=== PATIENT | female | born 1950 | race Caucasian/White ===

== ENCOUNTER 2016-04-11 10:49 | Emergency (ER) | payer OTHER, MEDICARE ==
[~2016-04-11] VITALS: Ht 162.6 cm; Wt 70.0 kg
[~2016-04-11 10:49] MED LIST: ALBU1AER INH; COZA50TA PO; IMIT100T PO; PROP20TA24 PO; ROXI5TAB4 PO; THEO200T27 PO; XANA1TAB6 PO
[2016-04-11 10:55] VITALS: BP 168/86; PULSE 61; RESP 18; TEMP 99.2; O2SAT 96
[2016-04-11] MEDS ORDERED: OXYC30TA PO (11:16)
[2016-04-11] MEDS ORDERED: FIORINAL2 PO (11:16)
[2016-04-11] MEDS ORDERED: ADDE20 PO (11:16)
[2016-04-11] MEDS ORDERED: XANA1TAB2 PO (11:16)
[2016-04-11] MEDS ORDERED: SUMA100T2 PO (11:16)
[2016-04-11] MEDS ORDERED: FLUT1INH INH (11:16)
[2016-04-11] MEDS ORDERED: OMEP20TA PO (11:16)
[2016-04-11] MEDS ORDERED: HYDROmorphone HCL PF 1 MG/ML VIAL IM ONE (11:30)
[2016-04-11] MEDS ORDERED: ONDANSETRON HCL 4 MG/2 ML VIAL IM ONE (11:30)
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
[2016-04-11] MEDS ORDERED: ROBA750T PO (12:51)
[2016-04-11] MEDS ORDERED: DICL75TA PO (12:51)
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
[2016-05-02] MEDS ORDERED: IPRASOL INH (11:58)
[2016-05-02] MEDS ORDERED: LOSA50TA PO (11:58)
[2016-05-02] MEDS ORDERED: VENTAER INH (12:03)
[2016-05-02] MEDS ORDERED: THEO200T4 PO (12:03)
[2016-05-02] MEDS ORDERED: AMLO10TA2 PO (12:13)
== END 2016-04-11 13:12 | disposition home or self-care (01) ==
LOC: PHEFT 10:49
DX: S20.219A Contusion of unspecified front wall of thorax, initial encounter (principal); S13.4XXA Sprain of ligaments of cervical spine, initial encounter; M54.9 Dorsalgia, unspecified; M25.552 Pain in left hip; R07.81 Pleurodynia; M79.641 Pain in right hand; M25.531 Pain in right wrist; R07.9 Chest pain, unspecified; R51 Headache; J44.9 Chronic obstructive pulmonary disease, unspecified; I10 Essential (primary) hypertension; V43.52XA Car driver injured in collision with other type car in traffic accident, initial encounter; Y93.89 Activity, other specified; Y92.410 Unspecified street and highway as the place of occurrence of the external cause; M48.54XA Collapsed vertebra, not elsewhere classified, thoracic region, initial encounter for fracture
CPT/HCPCS: 70450; 71111; 71120; 72125; 72131; 73110; 73130; 73502; 96372; 99284; J1170; J2405

== ENCOUNTER → 2016-08-27 | Outpatient (CLI) | payer MEDICARE, OTHER ==
[~2016-08-27] MED LIST changes: +ADDE20 PO; -ALBU1AER INH; +AMLO10TA2 PO; -COZA50TA PO; +DICL75TA PO; +FIORINAL2 PO; +FLUT1INH INH; -IMIT100T PO; +IPRASOL INH; +LOSA50TA PO; +OMEP20TA PO; +OXYC30TA PO; -PROP20TA24 PO; +ROBA750T PO; -ROXI5TAB4 PO; +SUMA100T2 PO; -THEO200T27 PO; +THEO200T4 PO; +VENTAER INH; +XANA1TAB2 PO; -XANA1TAB6 PO
[2016-08-27 13:43] LABS: BICARBONATE 28.4 MEQ/L (21.0-32.0); POTASSIUM 3.5 MEQ/L (3.5-5.1); TOTAL PROTEIN SPE 7.6 GM/DL (6.0-7.6)
[2016-08-27 17:26] LABS: BLOOD, URINE NEG (NEG); GLUCOSE,URINE NEG (NEG); KETONE, URINE NEG (NEG); NITRITE,URINE NEG (NEG); SQUAMOUS EPITHELIAL CELL URINE <1 /hpf (0-5); URINE COLOR YELLOW (YELLW/STRAW)
[2016-08-27 17:27] LABS: URINE TOTAL PROTEIN TIMED 13.5 MG/DL
[2016-08-27 22:33] LABS: ALBUMIN SPE 4.32 GM/DL (3.50-5.00); ALPHA 1 GLOBULIN 0.3 GM/DL (0.11-0.29)
[2016-08-27 22:34] LABS: BETA GLOBULINS (SPE) 0.78 GM/DL (0.53-1.03)
[2016-08-29 03:51] LABS: KAPPA/LAMBDA FREE 1.25 (0.26-1.65)
[2016-08-30 03:52] LABS: MYELOPEROXIDASE LESS THAN 1.0 AI (<1.0); PROTEINASE-3 LESS THAN 1.0 AI (<1.0)
== END ==
LOC: PLAB 11:21
PROVIDERS: ATTEND Internal Medicine Nephrology
DX: E55.9 Vitamin D deficiency, unspecified (principal); N18.3 Chronic kidney disease, stage 3 (moderate)
CPT/HCPCS: 36415; 80069; 81001; 82306; 82570; 83883; 83970; 84156; 84165; 86021; 86160; 86162; 86335; 86803

== ENCOUNTER 2016-10-29 22:22 | Emergency (ER) | payer MEDICARE, OTHER ==
[~2016-10-29] VITALS: Ht 162.6 cm; Wt 69.5 kg
[2016-10-29 22:33] VITALS: BP 133/73; PULSE 62; RESP 16; TEMP 98.3; O2SAT 98
== END 2016-10-30 00:26 | disposition left against medical advice (07) ==
LOC: PHED 22:22
DX: S99.921A Unspecified injury of right foot, initial encounter (principal); W19.XXXA Unspecified fall, initial encounter
CPT/HCPCS: 99281

== ENCOUNTER → 2017-01-29 | Outpatient (CLI) | payer MEDICARE, OTHER ==
[~2017-01-29] MED LIST changes: +CENTCHW4 CHEW; +E 101000 PO; +FENT75DI TD; +HYDR-3535 PO; -OMEP20TA PO; +OMEP20TA93 PO; +SOMA350T PO; +VITA1000 PO
[2017-01-29 11:11] LABS: AUTOMATED NEUTROPHIL # 5.3 TH/MM3 (1.8-7.7); BASOPHIL % 0.4 % (0.0-2.0); EOSINOPHIL # 0.1 TH/MM3 (0-0.4); EOSINOPHIL % 1.5 % (0.0-4.0); HEMATOCRIT 39.1 % (35.0-46.0); HEMOGLOBIN 13.2 GM/DL (11.6-15.3); LYMPH % 24.9 % (9.0-44.0); MEAN CELL VOLUME 90.8 FL (80.0-100.0); MEAN CORPUSCULAR HEMOGLOBIN 30.6 PG (27.0-34.0); MEAN CORPUSCULAR HGB CONC 33.7 % (32.0-36.0); MEAN PLATELET VOLUME 9.6 FL (7.0-11.0); MONO % 7.4 % (0.0-8.0); MONOCYTE # 0.6 TH/MM3 (0-0.9); NEUT % 65.8 % (16.0-70.0); PLATELET COUNT 201 TH/MM3 (150-450); RED BLOOD COUNT 4.31 MIL/MM3 (4.00-5.30); RED CELL DISTRIBUTION WIDTH 13.5 % (11.6-17.2); WHITE BLOOD COUNT 8.1 TH/MM3 (4.0-11.0)
[2017-01-29 11:18] LABS: BILIRUBIN, URINE NEG (NEG); BLOOD, URINE NEG (NEG); GLUCOSE,URINE NEG (NEG); KETONE, URINE NEG (NEG); NITRITE,URINE NEG (NEG); PH, URINE 6.5 (5.0-8.5); SQUAMOUS EPITHELIAL CELL URINE <1 /hpf (0-5); TRANSITIONAL EPI CELLS, URINE <1 /hpf; URINE COLOR YELLOW (YELLW/STRAW); URINE LEUKOCYTE ESTERASE SMALL (NEG)
[2017-01-29 11:27] LABS: PROTHROMBIN TIME - PATIENT 11.1 SEC (9.8-11.6)
[2017-01-29 11:40] LABS: ALBUMIN 3.8 GM/DL (3.4-5.0); AST (GOT) 46 U/L (15-37); BICARBONATE 30.3 MEQ/L (21.0-32.0); BLOOD UREA NITROGEN 8 MG/DL (7-18); CALCIUM 9.6 MG/DL (8.5-10.1); CHLORIDE 104 MEQ/L (98-107); GLOMERULAR FILTRATION RATE 56 ML/MIN (>89); GLUCOSE,FASTING 104 MG/DL (74-99); SODIUM (NA) 138 MEQ/L (136-145)
[2017-01-29 11:50] LABS: ALKALINE PHOSPHATASE 104 U/L (45-117); ALT (GPT) 65 U/L (10-53); TOTAL BILIRUBIN ADULT 0.5 MG/DL (0.2-1.0); TOTAL PROTEIN 7.9 GM/DL (6.4-8.2)
--- NOTE | 2017-01-29 22:16 | EKG ---
Date Performed: 01/29/2017 Time Performed: 10:39:59 PTAGE: 66 years EKG: Sinus rhythm NORMAL ECG PREVIOUS TRACING : 07/11/2014 16.45 Compared to the previous tracing rate slower DOCTOR: Aleyda Alexander Interpretating Date/Time 01/29/2017 22:14:13
== END ==
LOC: CPRE 10:04
PROVIDERS: ATTEND Neurological Surgery
DX: Z01.810 Encounter for preprocedural cardiovascular examination (principal); Z01.812 Encounter for preprocedural laboratory examination; Z01.811 Encounter for preprocedural respiratory examination; Z01.818 Encounter for other preprocedural examination; M50.20 Other cervical disc displacement, unspecified cervical region; M51.26 Other intervertebral disc displacement, lumbar region
CPT/HCPCS: 36415; 80053; 81001; 85025; 85610; 85730; 93005

== ENCOUNTER 2017-02-06 06:35 | Observation (INO) | payer MEDICARE, OTHER ==
[~2017-02-06] VITALS: Ht 162.6 cm; Wt 71.2 kg
[~2017-02-06 06:35] MED LIST changes: -DICL75TA PO; -HYDR-3535 PO; -SOMA350T PO; -THEO200T4 PO
[2017-02-06] MEDS ORDERED: VANCOMYCIN HCL 1000 MG ON-CALL/NS 250 ML IV SCH ×2 (07:00)
[2017-02-06] MEDS ORDERED: SODIUM CHLOR 0.9% 1000 ML INJ 1,000 ML IV SCH ×2 (07:00→14:00)
[2017-02-06] MEDS ORDERED: SODIUM CHLORID 0.9% 500 ML IV PRN (07:00)
[2017-02-06] MEDS ORDERED: POVIDONE IODINE 5% (ANTISEPSIS KIT) 4 APPLICATIONS EACH NARE PRN (07:00)
[2017-02-06] MEDS ORDERED: INSULIN HUMAN REGULAR 1,000 UNITS/10 ML VIAL SQ PRN (07:00)
[2017-02-06] MEDS ORDERED: METOPROLOL TARTRATE 25 MG TAB PO PRN (07:00)
[2017-02-06] MEDS ORDERED: CHLORHEXIDINE GLUCONATE 2 % 1 PACK (2 CLOTHS) TOPICAL PRN (07:00)
[2017-02-06] MEDS ORDERED: LACTATED RINGER'S 1000 ML IV PRN (07:00)
[2017-02-06] MEDS ORDERED: MICROFIBRILLAR COLLAGEN HEMOSTAT 70 X 35 MM BANDAGE ONE (07:31)
[2017-02-06] MEDS ORDERED: THROMBIN (TOPICAL) 5,000 UNIT VIAL ONE (07:31)
[2017-02-06] MEDS ORDERED: GELFOAM SIZE 100 ONE (07:32)
[2017-02-06] MEDS ORDERED: GENTAMICIN SULFATE 80 MG/2 ML VIAL ONE (07:32)
[2017-02-06] MEDS ORDERED: ceFAZolin 2 GM PREMIX 50 ML ONE (07:32)
[2017-02-06] MEDS ORDERED: SOMA350T PO (07:49)
[2017-02-06] MEDS ORDERED: ACETAMINOPHEN 1000 MG/100 ML 0 ML IV ONE (07:52)
[2017-02-06] MEDS ORDERED: PROPOFOL 500 MG/50 ML INJ 100 ML ONE (07:52)
[2017-02-06] MEDS ORDERED: ARTIFICIAL TEARS OPTH OINT 3.5 APPLIC/3.5 GM TUBO ONE (07:52)
[2017-02-06] MEDS ORDERED: DEXTROSE 50% IN WATER 50 ML VIAL(D50) IV PUSH PRN (12:00)
[2017-02-06] MEDS ORDERED: PHENYLEPH/NS 1000 MCG/10 ML SYR IV ONE (12:00)
[2017-02-06] MEDS ORDERED: LACTATED RINGER'S 1000 ML INJ 1,000 ML IV ONE (12:00)
[2017-02-06] MEDS ORDERED: GLUCAGON 1 MG/ML VIAL OTHER PRN (12:00)
[2017-02-06] MEDS ORDERED: BISACODYL 10 MG SUPP RECTAL PRN (12:00)
[2017-02-06] MEDS ORDERED: ONDANSETRON HCL 4 MG/2 ML VIAL IV PUSH ONE (12:00)
[2017-02-06] MEDS ORDERED: MIDAZOLAM HCL 2 MG/2 ML VIAL IV ONE (12:00)
[2017-02-06] MEDS ORDERED: SODIUM CHLORIDE 0.9% FLUSH 5 ML FLUSH IVF PRN (12:00)
[2017-02-06] MEDS ORDERED: ePHEDrine/NS 25 MG/5 ML SYR IV ONE (12:00)
[2017-02-06] MEDS ORDERED: PROPOFOL 200 MG/20 ML AMP IV ONE (12:00)
[2017-02-06] MEDS ORDERED: cloNIDine HCL 0.1 MG TAB PO/NG PRN (12:00)
[2017-02-06] MEDS: INSULIN ASPART SUPPLEMENTAL SCALE SQ SCH ×3 (12:00→20:53)
[2017-02-06] MEDS ORDERED: ACETAMINOPHEN 325 MG TAB PO PRN (12:00)
[2017-02-06] MEDS ORDERED: MENTHOL LOZENGE BUCCAL PRN (12:00)
[2017-02-06] MEDS ORDERED: DEXAMETHASONE SOD PHOS 4 MG/ML VIAL IV ONE (12:00)
[2017-02-06] MEDS ORDERED: LIDOCAINE HCL 1% PF 5 ML AMPULE OTHER ONE (12:00)
[2017-02-06] MEDS ORDERED: PANTOPRAZOLE SODIUM 40 MG VIAL IVP SCH (12:00)
[2017-02-06] MEDS ORDERED: MAGNESIUM HYDROXIDE SUSP 30 ML CUP PO PRN (12:00)
[2017-02-06] MEDS ORDERED: RESP: ALBUTEROL 2.5 MG/3 ML NEB (PRN) INH (12:00)
[2017-02-06] MEDS ORDERED: MORPHINE SULFATE 4 MG/ML INJ IV PUSH PRN (12:00)
[2017-02-06] MEDS ORDERED: ONDANSETRON HCL 4 MG/2 ML VIAL IV PUSH PRN (12:00)
[2017-02-06] MEDS ORDERED: ACETAMINOPHEN/HYDROcodone 325 MG/10 MG TAB PO PRN ×2 (12:00)
[2017-02-06] MEDS ORDERED: VANCOMYCIN INJ 1,000 MG in SODIUM CHLOR 0.9% 250 ML INJ 250 ML IV SCH (12:00)
[2017-02-06] MEDS ORDERED: CYCLOBENZAPRINE HCL 10 MG TAB PO PRN (12:00)
[2017-02-06] MEDS ORDERED: ALPRAZolam 1 MG TAB PO PRN (12:15)
[2017-02-06] MEDS ORDERED: DO NOT ADM ANY ANTICOAGULANT DRUGS PRN (12:19)
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
[2017-02-06] MEDS: CARISOPRODOL 350 MG TAB PO SCH ×2 (13:00→18:39)
[2017-02-06] MEDS ORDERED: *MEPERIDINE 25 MG INJ VIAL PERIprocedural Use ONLY ONE (13:31)
--- NOTE | 2017-02-06 13:32 | PD.OP ---
Operative Report Date of Surgery: Feb 06, 2017 Preoperative Diagnosis: Cervical spinal stenosis Postoperative Diagnosis: Cervical spinal stenosis Procedure: C5-6, C6-7 anterior cervical discectomy, interbody arthodhesis using PEEK cage filled with autologous bone graft, Simplicity plate and screws. Anesthesia: general Surgeon: Jhony Cifuentes Electron Gun Inspector(s): Nichelle Knox Operation and Findings: INDICATIONS FOR THE PROCEDURE Ms Farah is a 66 year-old female who presented with intractable neck pain and clinical evidence of C6 and C7 upper extremity radiculopathy. She was found to have significant spondylosis with stenosis. She failed maximum nonsurgical management including multiple modalities of conservative treatment as well as pain management interventions by an interventional pain specialist. A surgical decompression and arthrodhesis were indicated. The [id number] details of the procedure, indications, alternatives, risks and potential complications were fully discussed with the patient. The patient fully understood. All The questions were answered. No guarantees were given. The patient voiced requesting the procedure and provided informed consents. The patient was offered the alternative of delaying the procedure and continuing with nonsurgical management. DETAILS OF THE SURGICAL PROCEDURE After the induction of general anesthesia, endotracheal intubation was performed. A Velasquez catheter, bilateral ARTEMIO hose, and sequential compression devices were placed and kept throughout the procedure. Placement of electrodes for neurophysiological monitoring of the somato sensorial evoked potentials. motor evoked potentials, and EMG as well as laryngeal nerve monitoring was achieved. The patient was positioned supine on a Syed table with the head over a gel doughnut. All pressure points were carefully padded with eggcrate mattress. The eyes were tapped shut after ointment was applied by the anesthesiologist to prevent corneal abrasion. A Russ hugger was placed over the exposed lower body to maintain control of the core body temperature. The electrophysiological team placed the needles and electrodes in their proper location and baseline SSEP's and motor evoked potentials were registered prior and after positioning and endotracheal intubation. The anterior cervical region was prepped and draped in the usual sterile fashion. A localizing x-ray was performed with a C-arm. The surgical procedure was performed in several steps as follow: SURGICAL APPROACH A skin incision was made along the inferior cervical crease with a #10 blade. The dissection was carried out through the platysma exposing the sternocleidomastoid muscle. The cervical spine was approached following the fascial layers of the neck just medial to the anterior border of the sternocleidomastoid and carotid sheath by a combination of sharp and dull dissection. The omohyoid muscle was identified and carefully dissected laterally and the deep cervical fascia was carefully opened. The longus colli muscles were retracted to each side of the midline. A marker was placed at the disc space C5-6 and a cross-table lateral x-ray performed with a C-arm. SURGICAL DECOMPRESSION In order to decompress the anterior surface of the spinal cord it was necessary to preform a microsurgical resection of the disk at C5-6 and C6-7. At this point in the procedure the operating microscope was draped in the usual sterile fashion and brought to the field. The rest of the surgical procedure was performed using microdissection technique with the exception of the closure. Under the operative microscopic, a self-retaining retractor was placed underneath the longus colli muscle. Anterior osteophite spurs werte carefully removed with the Leksell. The annulus at C5-6 and C6-7 were incised with a #15 blade and microdiscectomy was then carefully carried out using angled curets and pituitary forceps. There were osteophitic/disk complexes mass effect and compression of the dural sac and nerve roots. The posterior longitudinal ligament was then elevated with an angled curet and incised with a 15 bladed knife. A careful resection of the posterior longitudinal ligament was carried out using a thin footplate 2 mm Kerrison. A nerve hook was used to assess the epidural space behind the vertebral bodies C5, C6, and C7 in search for residual disk fragments. The margins of the posterior endplates at C5-6 and C6- 7 were carefully drilled and undercut with a TPS drill under high magnification. The decompression was then carried out laterally, and a bilateral foraminotomy was performed with a 2mm thin foot Kerrison. Then the vertebral bodies above and below the disk space were undercut using a 2 mm thin foot Kerrison. The epidural space was the systematically assessed with a nerve hook in search for disk fragments. An excellent decompression was achieved in both, the dural sac and bilateral exiting nerve roots. The incision was then irrigated with a large amount of antibiotic solution INTERBODY ARTHRODHESIS In order to avoid collapse of the disk space which would result in bilateral foraminal stenosis, and to increase the chances of a successful fusion, it was necessary to place an interbody cage filled with autologous bone. At this point of the procedure, the superior and inferior endplates were then evenly decorticated with a TPS drill. The use of a drill in combination with a curette allowed me to systematically remove the cartilaginous endplates, exposing healthy bone for the interbody arthrodesis. Fourteen millimeters distraction pins were then placed at the vertebral bodies adjacent to the disk space, and gentle distraction was applied. The size of the interbody cage was then assessed using different size spacers, and a rasp was used to ensure no residual cartilage. A PEEK cage of the appropriate size was selected, and the interbody arthrodesis was then preformed by carefully impacting a PEEK cage filled with autologous bone graft to the disc spaces C5-6 and C6-7. An excellent position of the cage was achieved. This was was confirmed anatomically by feeling the space posterior to the implant and distance to the anterior surface of the dural sac. Radiological confirmation of the position was performed with a cross lateral xray performed with the C-arm. INTERNAL INSTRUMENTAL FIXATION Once that the interbody device was in an appropriate position, it was necessary to stabilize the spine with anterior instrumentation. Anterior instrumentation has demonstrated to increase the rate of fusion, accelerate the patient's recovery, and decrease the rate of failed interbody grafts. At this point of the procedure, the distance between the vertebral bodies was carefully measures, and a Simplicity plate was brought to the field and presented in front of the vertebral bodies C5, C6, and C7. Sand Mill Operator Core Sand holes were then drilled using the TPS drill, and the plate was then secured to the spine using self-drilling, self-tapping screws. Initially, the inferior right screw was inserted, followed by placement of the contralateral upper screw. The remanding screws were sequentially placed in a contra-lateral fashion. A proper purchase was achieved with all screws and the position of the cage, plate and screws, and alignment of the spine was assessed anatomically by direct visualization, and radiologically by performing a cross lateral xray of the cervical spine with the C-arm. CLOSURE The incision was irrigated with several liters of antibiotic solution. Hemostasis was achieved with a bipolar. The screws were locked to prevent backing out. A 7 mm Syed-Keenan drain was left in the prevertebral space and externalized through a separate stab incision. The incision was then closed in layers. 3-0 Vicryl with interrupted sutures was used to close the platysma and subcutaneous tissue. The skin was closed with 4-0 running subcuticular Vicryl and glue was applied to the skin. The drain was secured with a 3-0 nylon. At the end of the procedure the sponge, needle and instrument counts were all correct. The estimated blood loss was less than 70-80 cc. No blood transfusion was given. No intraoperative complications occurred. The patient received prophylactic antibiotics. The patient was then extubated and transferred to the recovery room in stable condition. Jhony Cifuentes MD Feb 06, 2017 13:32
[2017-02-06] MEDS ORDERED: *morphine SULFATE 8 MG/ML PERIprocedure ONLY ONE (13:42)
[2017-02-06] MEDS ORDERED: *HYDROmorphone PF 1 MG VIAL PERIprocedural Use ONLY ONE (13:52)
[2017-02-06] MEDS: SODIUM CHLORIDE 0.9% FLUSH 5 ML FLUSH IVF SCH ×2 (14:00→20:53)
[2017-02-06] MEDS: DEXAMETHASONE SOD PHOS 4 MG/ML VIAL IV PUSH SCH ×3 (14:00→18:38)
[2017-02-06] MEDS ORDERED: METHOCARBAMOL 500 MG TAB PO PRN (15:00)
[2017-02-06] MEDS: MORPHINE SULFATE 4 MG/ML INJ IV PUSH PRN (15:59)
[2017-02-06] MEDS ORDERED: RESP: ALBUTEROL 2.5 MG/IPRATROPIUM 0.5 MG NEB (SCH) INH (16:00)
[2017-02-06] MEDS: DOCUSATE SODIUM 100 MG CAP PO SCH ×2 (16:01→20:53)
[2017-02-06] MEDS: PANTOPRAZOLE SOD 40 MG DELAYED RELEASE TAB PO SCH (16:06)
[2017-02-06] MEDS: ceFAZolin 2 GM PREMIX 50 ML IV SCH (16:07)
[2017-02-06 16:24] VITALS: BP 160/87; PULSE 90; RESP 18; TEMP 98.8; O2SAT 99
[2017-02-06 20:00] VITALS: BP 150/78; PULSE 88; RESP 16; TEMP 97.5; O2SAT 98
[2017-02-06] MEDS ORDERED: CHLORHEXIDINE GLUCONATE 4% SOLN 120 ML BTL TOP SCH (21:00)
[2017-02-07] VITALS: BP 146/87; PULSE 92; RESP 16; TEMP 97.5; O2SAT 95
[2017-02-07] MEDS: ceFAZolin 2 GM PREMIX 50 ML IV SCH ×2 (00:38→08:32)
[2017-02-07] MEDS: DEXAMETHASONE SOD PHOS 4 MG/ML VIAL IV PUSH SCH ×2 (00:38→05:54)
[2017-02-07] MEDS: MORPHINE SULFATE 4 MG/ML INJ IV PUSH PRN ×2 (00:38→06:00)
[2017-02-07 04:00] VITALS: BP 112/69; PULSE 85; RESP 17; TEMP 95.7; O2SAT 96
[2017-02-07 08:00] VITALS: BP 144/83; PULSE 92; RESP 18; TEMP 98.3; O2SAT 96
[2017-02-07] MEDS: INSULIN ASPART SUPPLEMENTAL SCALE SQ SCH (08:00)
[2017-02-07] MEDS: DOCUSATE SODIUM 100 MG CAP PO SCH (08:30)
[2017-02-07] MEDS: CARISOPRODOL 350 MG TAB PO SCH (08:30)
[2017-02-07] MEDS: PANTOPRAZOLE SOD 40 MG DELAYED RELEASE TAB PO SCH (08:31)
[2017-02-07] MEDS: SODIUM CHLORIDE 0.9% FLUSH 5 ML FLUSH IVF SCH (08:32)
[2017-02-07] MEDS ORDERED: DEXTROAMPHETAMINE/AMPHETAMINE 20 MG TAB PO SCH (09:00)
[2017-02-07] MEDS ORDERED: MULTIVITAMINS/MINERALS THERAPEUTIC TAB PO SCH (09:00)
[2017-02-07] MEDS ORDERED: FLUTICASONE 100 MCG/VILANTEROL 25 MCG INHALER INH SCH (09:00)
[2017-02-07] MEDS ORDERED: LOSARTAN 50 MG TAB PO SCH (09:00)
[2017-02-07] MEDS ORDERED: CHOLECALCIFEROL (VIT D3) 1000 UNIT TAB PO SCH (09:00)
[2017-02-07] MEDS ORDERED: HYDR-3535 PO (09:36)
--- NOTE | 2017-02-07 10:36 | HHI.DCPOC ---
Discharge Care Plan Diagnosis: (1) Status post cervical arthrodesis Goals to Promote Your Health * To prevent worsening of your condition and complications * To maintain your health at the optimal level Directions to Meet Your Goals Take your medications as prescribed Follow your dietary instruction Follow activity as directed Keep your appointments as scheduled Take your immunizations and boosters as scheduled If your symptoms worsen call your PCP, if no PCP go to Urgent Care Center or Emergency Room Smoking is Dangerous to Your Health. Avoid second hand smoke Call the 24-hour hour crisis hotline for domestic abuse at Destiny Brown Feb 07, 2017 10:36
--- NOTE | 2017-02-07 10:36 | HHI.DS ---
Discharge Summary Admission Date Feb 06, 2017 at 12:00 Discharge Date: Feb 07, 2017 Admitting Diagnosis s/p ACDF (1) Status post cervical arthrodesis ICD Code: Z98.1 - Arthrodesis status Brief History Ms. Farah is a 66 year-old female who presented with intractable neck pain and clinical evidence of C6 and C7 upper extremity radiculopathy. She was found to have significant spondylosis with stenosis. She failed maximum nonsurgical management including multiple modalities of conservative treatment as well as pain management interventions by an interventional pain specialist. A surgical decompression and arthrodesis were indicated. Significant Findings Laboratory Tests Test 02/06/17 18:30 Hospital Course Ms. Farah underwent a C5-6, C6-7 anterior cervical discectomy, interbody arthrodesis using PEEK cage filled with autologous bone graft, Simplicity plate and screws on Feb 06, 2017 for Cervical spinal stenosis. Her surgery went well without complications. She was discharged home with home health care in stable conditions. Wound care and activity restrictions were discussed. Pt Condition on Discharge: Stable Discharge Disposition: Discharge Home Discharge Instructions DIET: Follow Instructions for: Heart Healthy Diet ADDITIONAL Diet Instructions: soft diet and advance as tolerated ACTIVITIES You can perform: Weight Bearing As [place] ADDITIONAL Activity Instructio: Avoid strenuous activities, heavy lifting over 5 lbs, overhead activities, repetitive bending, twisting, pushing, pulling or any activities which might result in stress over the spine. Avoid situation that will put at risk for falls. Use assistive device as needed for walking. Wear cervical collar at all times, may remove only with meals. Follow up Referrals: Neurosurgery - 1 Week @ [facility] with Jhony Cifuentes MD New Medications: Hydrocodone-Acetaminophen (Lortab) 10-325 Mg Tab 1 TAB PO Q8HR PRN for PAIN, #62 TAB 0 Refills Continued Medications: Albuterol 18 GM Inh (Ventolin Hfa 18 GM Inh) 90 Mcg/Act Aer 1-2 PUFF INH Q4-6H PRN for SHORTNESS OF BREATH, #1 INHALER 0 Refills Alprazolam (Xanax) 1 Mg Tab 1 MG PO Q8H PRN for ANXIETY, TAB 0 Refills Amlodipine (Amlodipine) 10 Mg Tab 10 MG PO DAILY for Blood Pressure Management, #30 TAB 0 Refills Amphetamine-Dextroamphetamine (Adderall) 20 Mg Tab 20 MG PO DAILY for Hyperactivity Control, #60 TAB 0 Refills Avoid late evening doses. Space doses at least 4 to 6 hours if more than once/day dosing. Ygcfqfqpxs-Wnljlkc-Ywrvtoxp (Fiorinal) 50-325-40 Mg Cap 1 CAP PO Q4H PRN for HEADACHE, CAP 0 Refills Do not exceed 6 capsules/day. Carisoprodol (Soma) 350 Mg Tab 350 MG PO TID, TAB 0 Refills Cholecalciferol (Vitamin D-1000) 1,000 Unit Tab 2000 UNITS PO DAILY for Nutritional Supplement, #1 BOTTLE 0 Refills Fentanyl Patch 72 HR (Fentanyl Patch 72 HR) 75 Mcg/Hr Patch 75 MCG TD Q3D Fluticasone-Vilanterol Inh (Breo Ellipta Inh) 100-25 Mcg/Act Inh 1 PUFF INH DAILY, #1 INHALER 0 Refills Use daily at the same time. Ipratropium-Albuterol Neb (Duoneb) 0.5-2.5 Mg/3 Ml Neb 1 NEBULE INH Q6HR NEB for Breathing Treatment, #120 NEBULE 0 Refills Losartan (Losartan) 50 Mg Tab 50 MG PO DAILY for Blood Pressure Management, #30 TAB 0 Refills Methocarbamol (Robaxin) 750 Mg Tab 750 MG PO QID PRN for PAIN SCALE 1 TO 10, #20 TAB Multiple Vitamins W/ Minerals (Centrum) 1 Chew 1 TAB CHEW DAILY for Nutritional Supplement, TAB 0 Refills Omeprazole (Omeprazole) 20 Mg Tab 20 MG PO DAILY, #30 TAB 0 Refills Oxycodone (Oxycodone) 30 Mg Tab 30 MG PO Q6HR PRN for PAIN SCALE 1 TO 10, TAB 0 Refills Sumatriptan (Sumatriptan) 100 Mg Tab 100 MG PO ONCE PRN for MIGRAINE HEADACHE, TAB 0 Refills If a satisfactory response has not been obtained at 2 hours, a second dose may be administered Vitamin E (E 1000) 1,000 Unit Cap 2000 UNIT PO DAILY Destiny Brown Feb 07, 2017 10:36
--- NOTE | 2017-02-07 11:26 | HHI.FF ---
Face to Face Verification Diagnosis: (1) Status post cervical arthrodesis Home Health Nursing Order: Medical education Medication education-adverse effect Wound care and dressing changes (do not remove Optifoam dressing, pt will return in office in 1 week. Please see wound care in discharge orders.) Nursing assessment with vital signs Instructions: Patient has [facility] I have seen patient Kae Farah on 02/07/17. My clinical findings support the need for the requested home health care services because: Ltd mobility - disease progression (s/p cervical fusion) I certify that my clinical findings support that this patient is homebound because: Post-op weakness Destiny Brown Feb 07, 2017 11:26
== END 2017-02-07 11:57 | disposition home or self-care (01) ==
LOC: HSDC 06:35 → HSDI 12:00 → N06B 14:19
PROVIDERS: ADMIT Neurological Surgery; ATTEND Neurological Surgery
DX: M48.02 Spinal stenosis, cervical region (principal); M50.123 Cervical disc disorder at C6-C7 level with radiculopathy; I10 Essential (primary) hypertension; E11.9 Type 2 diabetes mellitus without complications
CPT/HCPCS: 00600; 20936; 22551; 22552; 22845; 22853; 72020; 76000; 82948; 87641; 96365; 96375; 96376; 97162; C1713; G0378; G8987; G8988; J0690; J1100; J1170; J1580; J1815; J2175; J2250; J2270; J2370; J2405; J3010; J7120; L0150; L0172; J0131

== ENCOUNTER → 2017-05-16 | Outpatient (CLI) | payer MEDICARE, OTHER ==
[~2017-05-16] VITALS: Ht 162.6 cm; Wt 71.4 kg
[~2017-05-16] MED LIST changes: +CHLORHEXIDINE GLUCONATE 2 % 1 PACK (2 CLOTHS) TOPICAL PRN; +DEXTROSE 5%-LACTATED RING INJ 1,000 ML IV SCH; +LACTATED RINGER'S 1000 ML IV PRN; +LIDOCAINE HCL 1% PF 5 ML SYRINGE OTHER ONE; +METOPROLOL TARTRATE 25 MG TAB PO PRN; -OMEP20TA93 PO; +PANT40TA3 PO; +POVIDONE IODINE 5% (ANTISEPSIS KIT) 4 APPLICATIONS EACH NARE PRN; +PROPOFOL 200 MG/20 ML AMP IV ONE; +SODIUM CHLORID 0.9% 500 ML IV PRN; +SOMA350T PO
--- NOTE | 2017-05-16 11:55 | GIPROC ---
[facility] [address] [facility]. [facility], [address] EGD PROCEDURE REPORT EXAM DATE: 05/16/2017 PATIENT NAME: Kae Farah MR #: [id number] BIRTHDATE: 1950 ATTENDING: Carrie Lyon MD ORDER #: [id number] DRY HOUSE WHEELER: Nilay Pollock and Petrona Wheeler STATUS: outpatient INDICATIONS: The patient is a 66 yr old female here for an EGD due to dysphagia reflux PROCEDURE PERFORMED: EGD w/ biopsy EGD w/ dilation of esophagus via guidewire dilator 14,15, 17 MEDICATIONS: None and Per Anesthesia. TOPICAL ANESTHETIC: none CONSENT: The patient understands the risks and benefits of the procedure and understands that these risks include, but are not limited to: sedation, allergic reaction, infection, perforation and/or bleeding. Alternative means of evaluation and treatment include, among others: physical exam, x-rays, and/or surgical intervention. The patient elects to proceed with this endoscopic procedure. medical equipment was checked for proper function. Hand hygiene and appropriate measures for infection prevention was taken. After the risks, benefits and alternatives of the procedure were thoroughly explained, Informed consent was verified, confirmed and timeout was successfully executed by the treatment team. The patient was anesthetized with topical anesthesia and the Pentax [id number] endoscope was introduced through the mouth and advanced to the second portion of the duodenum. Retroflexed views revealed a hiatal hernia The gastroscope was then slowly withdrawn and removed. Gastritis antrum-biopsy irregulr z line stricture distal esophagus-dilatation. ADVERSE EVENTS: There were no complications. IMPRESSIONS: 1. Gastritis antrum-biopsy irregulr z line stricture distal esophagus-dilatation 2. Retroflexed views revealed a hiatal hernia RECOMMENDATIONS: 1. Anti-reflux regimen 2. Continue PPI 3. Dilatations PRN PATIENT CONDITION: stable DISPOSITION: Home REPEAT EXAM: Return 2 years EGD Carrie Lyon MD eSigned: Carrie Lyon MD 05/16/2017 11:55 AM cc: PATIENT NAME: Kae Farah MR#: [id number]
[2017-05-16 12:28] VITALS: BP 145/81; PULSE 71; RESP 20; TEMP 97.9; O2SAT 99
--- NOTE | 2017-05-16 20:30 | EKG ---
Date Performed: 05/16/2017 Time Performed: 09:17:24 PTAGE: 66 years EKG: Sinus rhythm NORMAL ECG PREVIOUS TRACING : 01/29/2017 10.39 Since the prior tracing, there has been no significant baig DOCTOR: Cecilio Peguero Interpretating Date/Time 05/16/2017 20:22:17
== END ==
LOC: HSDC 08:57
PROVIDERS: ATTEND Internal Medicine Gastroenterology
DX: R13.10 Dysphagia, unspecified (principal); K22.2 Esophageal obstruction; K44.9 Diaphragmatic hernia without obstruction or gangrene; I78.1 Nevus, non-neoplastic; I10 Essential (primary) hypertension; J43.9 Emphysema, unspecified
CPT/HCPCS: 00731; 43239; 43248; 88305; 93005; C1769; J7120

== ENCOUNTER → 2017-07-17 | Outpatient (CLI) | payer MEDICARE, OTHER ==
[~2017-07-17] MED LIST changes: -CHLORHEXIDINE GLUCONATE 2 % 1 PACK (2 CLOTHS) TOPICAL PRN; -DEXTROSE 5%-LACTATED RING INJ 1,000 ML IV SCH; -LACTATED RINGER'S 1000 ML IV PRN; -LIDOCAINE HCL 1% PF 5 ML SYRINGE OTHER ONE; -METOPROLOL TARTRATE 25 MG TAB PO PRN; -POVIDONE IODINE 5% (ANTISEPSIS KIT) 4 APPLICATIONS EACH NARE PRN; -PROPOFOL 200 MG/20 ML AMP IV ONE; -SODIUM CHLORID 0.9% 500 ML IV PRN
[2017-07-17 14:45] LABS: AUTOMATED NEUTROPHIL # 3.2 TH/MM3 (1.8-7.7); BASOPHIL # 0.3 TH/MM3 (0-0.2); EOSINOPHIL # 0.3 TH/MM3 (0-0.4); EOSINOPHIL % 3.7 % (0.0-4.0); HEMATOCRIT 39.5 % (35.0-46.0); HEMOGLOBIN 13.3 GM/DL (11.6-15.3); LYMPH % 40.4 % (9.0-44.0); LYMPHOCYTE # 3.1 TH/MM3 (1.0-4.8); MEAN CELL VOLUME 90.9 FL (80.0-100.0); MEAN CORPUSCULAR HEMOGLOBIN 30.5 PG (27.0-34.0); MEAN CORPUSCULAR HGB CONC 33.5 % (32.0-36.0); MEAN PLATELET VOLUME 9.9 FL (7.0-11.0); MONO % 9.3 % (0.0-8.0); MONOCYTE # 0.7 TH/MM3 (0-0.9); NEUT % 42.6 % (16.0-70.0); PLATELET COUNT 182 TH/MM3 (150-450); RED BLOOD COUNT 4.35 MIL/MM3 (4.00-5.30); RED CELL DISTRIBUTION WIDTH 13.8 % (11.6-17.2); WHITE BLOOD COUNT 7.6 TH/MM3 (4.0-11.0)
[2017-07-17 14:56] LABS: ALBUMIN 3.3 GM/DL (3.4-5.0); AST (GOT) 21 U/L (15-37); BLOOD UREA NITROGEN 6 MG/DL (7-18); CALCIUM 9.4 MG/DL (8.5-10.1); CHLORIDE 108 MEQ/L (98-107); CREATININE 1.04 MG/DL (0.50-1.00); GLOMERULAR FILTRATION RATE 53 ML/MIN (>89); SODIUM (NA) 143 MEQ/L (136-145)
[2017-07-17 15:00] LABS: ALKALINE PHOSPHATASE 100 U/L (45-117); ALT (GPT) 23 U/L (10-53); GLUCOSE,FASTING 95 MG/DL (74-99); TOTAL BILIRUBIN ADULT 0.4 MG/DL (0.2-1.0); TOTAL PROTEIN 7.3 GM/DL (6.4-8.2)
[2017-07-22 10:15] LABS: HCV RNA PCR IU/ML LESS THAN 15 IU/mL (Not Detected)
== END ==
LOC: PLAB 10:25
PROVIDERS: ATTEND Internal Medicine Gastroenterology
DX: B18.2 Chronic viral hepatitis C (principal)
CPT/HCPCS: 36415; 80053; 85025; 87522